=== PATIENT | male | born 1955 | race Hispanic/Latino ===

== ENCOUNTER 2022-01-04 10:13 | Observation (INO) | payer OTHER ==
--- OUTSIDE RECORDS SUMMARY | 2022-01-04 10:16 | XMS REPORT | Continuity of Care Document ---
:1955 Author Organization [facility] t Address [address] [place] [address] Care Team Providers Name Role Phone Emigdio Kam MD Primary Care Physician Emigdio Kam MD Attending Clinician Tato Sabillon MD Attending Clinician TATO SABILLON Attending Clinician Unavailable TATO SABILLON Attending Clinician Unavailable Payers Payer Name Policy Type Policy Number Effective Date Expiration Date S ource Problems Condition Condition Condition Status Onset Resolution Last Treating Co mments Source Name Details Category Date Date Treatment Clinician Date No known No known Disease Unive rs active active ity of problems problems [facility] Allergies, Adverse Reactions, Alerts Allergy Allergy Status Severity Reaction(s) Onset Inactive Treating Comm ents Source Name Type Date Date Clinician NO KNOWN Drug Active Univers ALLERGIE Class ity of S [facility] Social History Social Habit Start Date Stop Date Quantity Comments Source History SDMA University o f Alcohol Frequency [facility] edical Branch History SDMA University o f Alcohol Std Drinks [facility] History SDMA University o f Alcohol Binge [facility] [place] Exposure to 2021-09-29 2021-10-09 Not sure University SARS-CoV-2 (event) 00:00:00 10:16:00 [facility] Alcohol intake 2021-10-09 2021-10-09 .57 /d University of 00:00:00 00:00:00 [facility] Tobacco use and 2020-07-23 2020-07-23 Never used Universit y of exposure 00:00:00 00:00:00 [facility] Alcohol Comment 2020-07-23 2020-07-23 social drinker Unive rsity of 00:00:00 00:00:00 [facility] Sex [birth year] Universit y of 00:00:00 00:00:00 [facility] Smoking Status Start Date Stop Date Source Never smoker [facility] Medications Ordered Filled Start Stop Current Ordering Indication Dosage Frequency Signature Comments Components Source Medication Medication Date Date Medication? Clinician (SIG) Name Name lisinopriL Yes 40mg Take 40 mg U nivers 40 mg 5-27 by mouth ity of tablet 10:31: daily. [address] lisinopriL Yes 40mg Take 40 mg U nivers 40 mg 5-27 by mouth ity of tablet 10:31: daily. [address] lisinopriL Yes 40mg Take 40 mg U nivers 40 mg 5-27 by mouth ity of tablet 10:31: daily. [address] tadalafiL Yes [id number] 20mg Take 1 U nivers 20 mg 5-27 tablet by ity of tablet 00:00: mouth as [place] 00 needed for Medical Erectile Branch dysfunctio n. amLODIPine Yes [id number] 5mg Take 1 U nivers 5 mg tablet 5-27 tablet by ity of 00:00: mouth [place] 00 daily. Medical Branch tadalafiL 2021-0 Yes [id number] 20mg Take 1 U nivers 20 mg 5-27 tablet by ity of tablet 00:00: mouth as [place] 00 needed for Medical Erectile Branch dysfunctio n. amLODIPine 2021-0 Yes [id number] 5mg Take 1 U nivers 5 mg tablet 5-27 tablet by ity of 00:00: mouth [place] 00 daily. Medical Branch tadalafiL 0 Yes [id number] 20mg Take 1 U nivers 20 mg 5-27 tablet by ity of tablet 00:00: mouth as 00 needed for Medical Erectile Branch dysfunctio n. amLODIPine 2021-0 Yes [id number] 5mg Take 1 U nivers 5 mg tablet 5-27 tablet by ity of 00:00: mouth [place] 00 daily. Medical Branch atorvastati 2020-05 Yes 40mg 40 mg. Univ ers n 80 mg 2-27 ity of tablet 00:00: [place] 00 Medical Branch atorvastati 2020-05 Yes 40mg 40 mg. Univ ers n 80 mg 2-27 ity of tablet 00:00: [place] 00 Medical Branch atorvastati 2020-05 Yes 40mg 40 mg. Univ ers n 80 mg 2-27 ity of tablet 00:00: [place] 00 Medical Branch meclizine 2020-05- No TAKE TWO Uni vers 12.5 mg 1-12 10-20 TABLETS BY ity o f tablet 00:00: 04:59 MOUTH [place] 00 :00 THREE Medical TIMES A Branch DAY NEEDED FOR DIZZINESS meclizine 2020-05- No TAKE TWO Uni vers 12.5 mg 1-12 10-20 TABLETS BY ity o f tablet 00:00: 04:59 MOUTH [place] 00 :00 THREE Medical TIMES A Branch DAY NEEDED FOR DIZZINESS meclizine 2020-05- No TAKE TWO Uni vers 12.5 mg 1-12 10-20 TABLETS BY ity o f tablet 00:00: 04:59 MOUTH [place] 00 :00 THREE Medical TIMES A Branch DAY NEEDED FOR DIZZINESS Melatonin 5 2020-0 Yes TAKE TWO Un cammy mg Cap 9-10 BY MOUTH ity of 00:00: AT BEDTIME [place] 00 FOR Medical INSOMNIA Branch Melatonin 5 2020-0 Yes TAKE TWO Un cammy mg Cap 9-10 BY MOUTH ity of 00:00: AT BEDTIME [place] 00 FOR Medical INSOMNIA Branch Melatonin 5 2020-0 Yes TAKE TWO Un cammy mg Cap 9-10 BY MOUTH ity of 00:00: AT BEDTIME [place] 00 FOR Medical INSOMNIA Branch cyclobenzap 2021- No TAKE ONE U nivers rine 10 mg 7-15 07-17 TABLET BY ity of tablet 00:00: 04:59 MOUTH [place] 00 :00 DAILY Medical NEEDED Branch A MUSCLE RELAXANT - DO NOT DRIVE AFTER TAKING THIS MEDICATION cyclobenzap 2021- No TAKE ONE U nivers rine 10 mg 7-15 07-17 TABLET BY ity of tablet 00:00: 04:59 MOUTH [place] 00 :00 DAILY Medical NEEDED Branch A MUSCLE RELAXANT - DO NOT DRIVE AFTER TAKING THIS MEDICATION cyclobenzap 2021- No TAKE ONE U devan rine 10 mg 7-15 17 TABLET BY ity of tablet 00:00: 04:59 MOUTH [place] 00 :00 DAILY Medical NEEDED Branch A MUSCLE RELAXANT - DO NOT DRIVE AFTER TAKING THIS MEDICATION Immunizations Ordered Filled Immunization Date Status Comments Sour e Immunization Name Name SARS-COV-2 COVID-19 2020-08-20 Completed Unive rsity of MODERNA VACCINE 00:00:00 [facility] SARS-COV-2 COVID-19 2020-08-20 Completed Unive rsity of MODERNA VACCINE 00:00:00 [facility] SARS-COV-2 COVID-19 2020-08-20 Completed Unive rsity of MODERNA VACCINE 00:00:00 [facility] SARS-COV-2 COVID-19 2020-07-23 Completed Unive rsity of MODERNA VACCINE 00:00:00 [facility] SARS-COV-2 COVID-19 2020-07-23 Completed Unive rsity of MODERNA VACCINE 00:00:00 [facility] SARS-COV-2 COVID-19 2020-07-23 Completed Unive rsity of MODERNA VACCINE 00:00:00 [facility] Vital Signs Vital Name Observation Time Observation Value Comments Source Systolic blood 2021-10-09 16:10:00 154 mm[Hg] Univer sity of [facility] Diastolic blood 2021-10-09 16:10:00 75 mm[Hg] Unive rsity of [facility] Body height 2021-10-09 16:04:[address] [facility] Body weight 2021-10-09 16:04:[address] [facility] BMI 2021-10-09 16:04:00 38.81 kg/m2 [facility] Procedures This patient has no known procedures. Encounters Start End Encounter Admission Attending Care Care Encounter Source Date/Time Date/Time Type Type Clinicians Facility Department ID 2021-10-23 2021-10-23 Telephone Negin [id number] [facility] 00:00:00 00:00:[address] [facility] [id number] it y of Eddarron HARTMANN [id number] Ramez as LUIS?BLEA [id number] [facility] [address] [place] MEDICAL OFFICE BUILDING 2021-10-09 2021-10-09 Office Raamndeep [facility] [id number] [facility] 11:20:00 12:44:59 Visit Tato [facility] [id number] [facility] [id number] Ramez as LUIS?BLEA [id number] [facility] [place] [id number] [place] MEDICAL OFFICE BUILDING 2021-10-09 2021-10-09 Outpatient R TATO SABILLON [facility] [id number] [facility] 11:20:00 12:44:59 TATO SABILLON of [facility] Results This patient has no known results.
[2022-01-04 10:40] LABS: Absolute Lymphocytes (CBC) 2.2 K/uL (0.7-4.9); Hematocrit 48.2 % (39.6-49.0); Lymphocytes % 27.3 % (15.3-44.8); MCV 89.9 fL (80-100); MPV 8.7 fL (7.6-11.3); RBC Red Blood Cell Count 5.36 M/uL (4.33-5.43)
--- NOTE | 2022-01-04 10:47 | RAD REPORT ---
EXAM DESCRIPTION: RAD - Chest Single View - 01/04/2022 10:41 am CLINICAL HISTORY: CHEST PAIN COMPARISON: No comparisons FINDINGS: Lines: None. Lungs: No evidence of edema or pneumonia. Pleural: No significant pleural effusions or pneumothorax. Cardiac: The heart size is within normal limits. Bones: No acute fractures. Other: IMPRESSION: No acute cardiopulmonary disease.
[2022-01-04 10:58] LABS: Albumin 3.8 g/dL (3.4-5.0); Bilirubin Direct 0.2 mg/dL (0-0.2); Bilirubin Total 0.7 mg/dL (0.2-1.0); Potassium 3.9 mmol/L (3.5-5.1); Protein, Total 7.6 g/dL (6.4-8.2); Troponin High Sensitivity 12.9 pg/mL (<58.9)
--- NOTE | 2022-01-04 11:41 | EDPHYS ---
Physician Documentation [facility] Name: Maurilio Campa Age: 66 yrs Sex: Male : 1955 Arrival Date: 01/04/2022 Time: 10:17 Bed 18 Private MD: ED Physician Duglas Kaminski HPI: 01/04 10:40 This 66 yrs old Male presents to ER via EMS with complaints of chest pain. rn 10:40 The patient or guardian reports chest pain that is located primarily in the substernal rn area. 10:42 Onset: last night. The pain does not radiate. Associated signs and symptoms: Pertinent rn positives: nausea, Pertinent negatives: abdominal pain, cough, diaphoresis, palpitations, shortness of breath, syncope, vomiting. The chest pain is described as a heaviness. Duration: The patient or guardian reports a single episode, that is now resolved. Modifying factors: The symptoms are alleviated by the symptoms are aggravated by nothing. Severity of pain: At its worst the pain was moderate in the emergency department the pain has resolved. The patient has not experienced similar symptoms in the past. The patient has been recently seen by a physician:. Sent [place] for [place], began last night, no radiation, not worse with anything, got better after taking tylenol/motrin. No current chest pain. No hx of [place]. No trauma or injury.. Historical: - Allergies: 10:39 No Known Allergies; mb8 - PMHx: 10:39 Hypertensive disorder; mb8 - Social history:: Smoking status: Patient denies any tobacco usage or history of. - Family history:: not pertinent. - Hospitalizations: : No recent hospitalization is reported. ROS: 10:42 Constitutional: Negative for fever, chills, and weight loss, Eyes: Negative for injury, rn pain, redness, and discharge, Neck: Negative for injury, pain, and swelling, Cardiovascular: Negative for palpitations, and edema, Respiratory: Negative for shortness of breath, cough, wheezing, and pleuritic chest pain, Abdomen/GI: Negative for abdominal pain, vomiting, diarrhea, and constipation, Back: Negative for injury and pain, MS/Extremity: Negative for injury and deformity, Skin: Negative for injury, rash, and discoloration, Neuro: Negative for headache, weakness, numbness, tingling, and seizure. Exam: 10:36 ECG was reviewed by the Attending Physician. rn 10:42 Constitutional: This is a well developed, well nourished patient who is awake, alert, rn and in no acute distress. Head/Face: Normocephalic, atraumatic. Cardiovascular: Bradycardic, regular Respiratory: No increased work of breathing, no retractions or nasal flaring. Abdomen/GI: Soft, non-tender, with normal bowel sounds. No distension or tympany. No guarding or rebound. No evidence of tenderness throughout. Skin: Warm, dry MS/ Extremity: Pulses equal, no cyanosis. Neuro: Awake and alert, GCS 15 Vital Signs: 10:33 BP 154 / 72; Pulse 52; Resp 16 S; Temp 97.9(O); Pulse Ox 94% on R/A; Pain 0/10; mb8 10:36 BP 154 / 72 Supine; Pulse 52; mb8 10:37 BP 133 / 100 Sitting; Pulse 67; mb8 10:37 BP 169 / 74 Standing; Pulse 67; mb8 11:02 BP 125 / 61 RA (auto/lg); Pulse 50; Resp 20; Pulse Ox 93% ; Pain 0/10; mb8 12:44 BP 131 / 67; Pulse 50; Resp 18; Temp 98.2; Pulse Ox 93% on R/A; Pain 0/10; mb8 13:38 BP 133 / 59; Pulse 57; Resp 18; Pulse Ox 95% ; Pain 0/10; mb8 14:35 BP 158 / 75; Pulse 49; Resp 18; Pulse Ox 94% ; Pain 0/10; mb8 MDM: 10:18 Patient medically screened. rn 11:40 Differential diagnosis: acute myocardial infarction, acute pericarditis, coronary rn artery disease congestive heart failure costochondritis, esophagitis, gastritis, gastroesophageal reflux disease (GERD), pericarditis, pleurisy, pneumonia, pneumothorax, pulmonary embolus, stable angina. Data reviewed: vital signs, nurses notes, lab test result(s), EKG, radiologic studies, plain films, and as a result, I will admit patient. Counseling: I had a detailed discussion with the patient and/or guardian regarding: the historical points, exam findings, and any diagnostic results supporting the discharge/admit diagnosis, lab results, radiology results, the need for further work-up and treatment in the hospital. Response to treatment: the patient's symptoms have resolved after treatment, and as a result, I will admit patient. Admission orders: after a detailed discussion of the patient's condition and case, the admit orders are written by me. 01/04 10:18 Order name: Basic Metabolic Panel; Complete Time: 11: rn 01/04 10:18 Order name: CBC with Diff; Complete Time: 10:01/04 10:18 Order name: D-Dimer; Complete Time: 10: rn 01/04 10:18 Order name: LFT's; Complete Time: 11: rn 01/04 10:18 Order name: NT PRO-BNP; Complete Time: 11:01/04 10:18 Order name: Troponin HS; Complete Time: 11:01/04 14:54 Order name: Basic Metabolic Panel [facility] 01/04 14:54 Order name: Basic Metabolic Panel [facility] 01/04 14:54 Order name: CBC with Automated Diff [facility] 01/04 14:54 Order name: CBC with Automated Diff [facility] 01/04 14:54 Order name: Lipid Profile [facility] 01/04 14:54 Order name: Lipid Profile [facility] 01/04 14:54 Order name: Troponin High Sensitivity [facility] 01/04 14:54 Order name: Troponin High Sensitivity [facility] 01/04 10:18 Order name: XRAY Chest (1 view); Complete Time: 10:52 01/04 10:18 Order name: EKG; Complete Time: 10:01/04 10:18 Order name: Cardiac monitoring; Complete Time: 10:01/04 10:18 Order name: EKG - Nurse/Tech; Complete Time: 10:01/04 10:18 Order name: IV Saline Lock; Complete Time: :01/04 10:18 Order name: Labs collected and sent; Complete Time: :01/04 10:18 Order name: O2 Per Protocol; Complete Time: :01/04 10:18 Order name: O2 Sat Monitoring; Complete Time: :01/04 14:52 Order name: CONS Physician Consult [facility] 01/04 14:54 Order name: Heart Healthy [facility] 01/04 14:54 Order name: Troponin High Sensitivity [facility] 01/04 14:54 Order name: Troponin High Sensitivity [facility] 01/04 14:55 Order name: Echo with Doppler [facility] 01/04 20:01 Order name: SARS RAPID ll3 01/04 20:54 Order name: SARS-COV-2 Antigen Rapid [facility] EC:36 Rate is 48 beats/min. Rhythm is regular. QRS [place] is Normal. NC interval is normal. QRS rn interval is normal. QT interval is normal. No Q waves. T waves are Normal. No ST changes noted. Clinical impression: Sinus bradycardia. Interpreted by me. Reviewed by me. Administered Medications: No medications were administered Disposition Summary: 01/04/22 11:41 Hospitalization Ordered Hospitalization Status: Observation rn Provider: Maurilio Kaminski rn Condition: Stable rn Problem: new rn Symptoms: have improved rn Bed/Room Type: Standard rn Location: Telemetry/MedSurg (observation)(01/04/22 20:17) cg Room Assignment: [facility](01/04/22 20:56) Diagnosis - Chest pain, unspecified rn Forms: - Medication Reconciliation Form rn - SBAR form rn Signatures: Dispatcher [employer] EDRI Duglas Kaminski MD MD rn Smirch, Shelby RN RN ss Sylvia Cruz RN RN cg Samir Feng RN RN mb8 Corrections: (The following items were deleted from the chart) 18:42 11:41 Telemetry/MedSurg (observation) rn 18:42 11:41 rn ss 20:17 18:42 [facility] ER HOLD ss cg 20:17 18:42 ERHOLD- ss cg 20:20 20:17 428 cg 20:55 20:20 cg cg 20:56 20:55 228 [facility]
--- NOTE | 2022-01-04 11:41 | ER ---
Nurse's Notes [facility] Name: Maurilio Campa Age: 66 yrs Sex: Male : 1955 Arrival Date: 01/04/2022 Time: 10:17 Bed 18 Private MD: Diagnosis: Chest pain, unspecified Presentation: 01/04 10:33 Chief complaint: Patient states: dizziness when changing positions. HR was in the 40s mb8 at the MO today. Denies any pain. Coronavirus screen: Vaccine status: Patient reports receiving the 2nd dose of the covid vaccine. Ebola Screen: Patient negative for fever greater than or equal to 101.5 degrees Fahrenheit, and additional compatible Ebola Virus Disease symptoms Patient denies exposure to infectious person. Patient denies travel to an Ebola-affected area in the 21 days before illness onset. No symptoms or risks identified at this time. Initial Sepsis Screen: Does the patient meet any 2 criteria? No. Patient's initial sepsis screen is negative. Does the patient have a suspected source of infection? No. Patient's initial sepsis screen is negative. Risk Assessment: Do you want to hurt yourself or someone else? Patient reports no desire to harm self or others. Onset of symptoms is unknown. 10:33 Method Of Arrival: EMS mb8 10:33 Acuity: STACY 3 mb8 Triage Assessment: 10:35 General: Appears in no apparent distress. comfortable, Behavior is calm, cooperative, mb8 appropriate for age. Pain: Denies pain. Cardiovascular: Reports lightheadedness, Denies chest pain, Capillary refill Patient's skin is warm and dry. Pulses are all present. Rhythm is sinus bradycardia. Respiratory: No deficits noted. Breath sounds are clear bilaterally. Denies shortness of breath. Historical: - Allergies: 10:39 No Known Allergies; mb8 - PMHx: 10:39 Hypertensive disorder; mb8 - Social history:: Smoking status: Patient denies any tobacco usage or history of. - Family history:: not pertinent. - Hospitalizations: : No recent hospitalization is reported. Screenin:38 Abuse screen: Denies threats or abuse. Denies injuries from another. Nutritional mb8 screening: No deficits noted. Tuberculosis screening: No symptoms or risk factors identified. Fall Risk None identified. Assessment: 10:38 Cardiovascular: Reports lightheadedness, Denies chest pain, Pulses are all present. mb8 Rhythm is sinus bradycardia Chest pain is denied. Respiratory: No deficits noted. 11:02 Reassessment: No changes from previously documented assessment. Patient and/or family mb8 updated on plan of care and expected duration. Pain level reassessed. Patient is alert, oriented x 3, equal unlabored respirations, skin warm/dry/pink. Patient denies pain at this time. Pain: Denies pain. 12:43 Reassessment: No changes from previously documented assessment. Patient and/or family mb8 updated on plan of care and expected duration. Pain level reassessed. Patient is alert, oriented x 3, equal unlabored respirations, skin warm/dry/pink. Patient denies pain at this time. 14:35 Reassessment: No changes from previously documented assessment. Patient and/or family mb8 updated on plan of care and expected duration. Pain level reassessed. Patient is alert, oriented x 3, equal unlabored respirations, skin warm/dry/pink. Patient denies pain at this time. Vital Signs: 10:33 BP 154 / 72; Pulse 52; Resp 16 S; Temp 97.9(O); Pulse Ox 94% on R/A; Pain 0/10; mb8 10:36 BP 154 / 72 Supine; Pulse 52; mb8 10:37 BP 133 / 100 Sitting; Pulse 67; mb8 10:37 BP 169 / 74 Standing; Pulse 67; mb8 11:02 BP 125 / 61 RA (auto/lg); Pulse 50; Resp 20; Pulse Ox 93% ; Pain 0/10; mb8 12:44 BP 131 / 67; Pulse 50; Resp 18; Temp 98.2; Pulse Ox 93% on R/A; Pain 0/10; mb8 13:38 BP 133 / 59; Pulse 57; Resp 18; Pulse Ox 95% ; Pain 0/10; mb8 14:35 BP 158 / 75; Pulse 49; Resp 18; Pulse Ox 94% ; Pain 0/10; mb8 Vitals: 11:02 Cardiac Rhythm Assessment Regular Sinus jasvir. mb8 ED Course: 10:17 Patient arrived in ED. rn 10:17 Duglas Kaminski MD is Attending Physician. rn 10:33 Samir Feng RN is Primary Nurse. mb8 10:35 Triage completed. mb8 10:38 Arm band placed on right wrist. EKG completed in triage. Results shown to MD. mb8 10:38 No provider procedures requiring assistance completed. Inserted saline lock: 18 gauge mb8 in left antecubital area, using aseptic technique. Blood collected. 10:39 Patient has correct armband on for positive identification. mb8 10:43 XRAY Chest (1 view) In Process Unspecified. EDMS 11:40 Maurilio Kaminski MD is Hospitalizing Provider. rn 12:44 Awaiting: Waiting for admitting MD to see. mb8 20:10 COVID swab sent to lab. mw2 21:09 Patient admitted, IV remains in place. ll3 Administered Medications: No medications were administered Medication: 10:39 VIS not applicable for this client. mb8 Outcome: 11:41 Decision to Hospitalize by Provider. rn 21:28 Admitted to Tele accompanied by tech, via wheelchair, room 428, with chart, Report ll3 called to JHONY Mcgarry 21:28 Condition: stable 21:28 Instructed on the need for admit, Demonstrated understanding of instructions. 21:29 Patient left the ED. ll3 Signatures: Dispatcher [employer] EDMS Duglas Kaminski MD MD rn [place], MyKena mw2 Shirley Fernandez RN RN ll3 Samir Feng, RN RN mb8
[2022-01-04 15:58] VITALS: BMI 36.8
[2022-01-04] MEDS: ENOXAPARIN 40 MG/0.4 ML SQ SCH (16:00)
[2022-01-04] MEDS ORDERED: lisinopriL 20 MG TAB PO SCH (18:00)
--- NOTE | 2022-01-04 18:00 | P.HP ---
Certification for Inpatient Patient admitted to: Observation With expected LOS: <2 Midnights Practitioner: I am a practitioner with admitting privileges, knowledge of patient current condition, hospital course, and medical plan of care. Services: Services provided to patient in accordance with Admission requirements found in Title 42 Section 412.3 of the Code of Federal Regulations Patient History Date of Service: 01/04/22 Reason for admission: Chest pain History of Present Illness: 66yo M, PMH: HTN, IDDM2, EVAN on cpap Presents to ER after having a ~2-3 hour episode of chest pain. He woke up around 3-330am with left sided pressure-like sensation. This continued until after he took some acetaminophen. He was supposedly told he had an irregular heart rhythm and it was in the 40s. He denies any prior episodes, no recent illness, no sick contacts, no prior similar sensations. In the ER currently, he denies having any chest pain, no shortness of breaths. Vitals ok. Initial troponin and EKG negative. ER physician requests obs for ACS rule out Allergies No Known Allergies Allergy (Unverified 01/04/22 15:05) - Past Medical/Surgical History Diabetic: Yes -: HTN -: IDDM2 -: Shoulder - Family History Father -: Heart disease (70s) - Social History Smoking Status: Current every day smoker Place of Residence: Home Review of Systems 10-point ROS is otherwise unremarkable Physical Examination - Vital Signs Blood Pressure: 160/76 Pulse: 59 Respirations: 16 Pulse Ox (%): 94 - Physical Exam General: Alert, In no apparent distress, Oriented x3 HEENT: Mucous membr. moist/pink, EOMI, Sclerae nonicteric Neck: Supple, No LAD Respiratory: Clear to auscultation bilaterally, Normal air movement Cardiovascular: No edema, Regular rate/rhythm Gastrointestinal: Soft and benign, Non-distended, No tenderness Musculoskeletal: No contractures, No tenderness Integumentary: No significant lesion, No tenderness/swelling Neurological: Normal speech, Normal strength at 5/5 x4 extr, Normal affect - Studies Laboratory Data (last 24 hrs) 01/04/22 10:30: WBC 8.00, Hgb 16.3, Hct 48.2, Plt Count 241 01/04/22 10:30: Sodium 138, Potassium 3.9, BUN 11, Creatinine 1.00, Glucose 267 H, Total Bilirubin 0.7, AST 16, ALT 42, Alkaline Phosphatase 65 Assessment and Plan - Advance Directives Does patient have a Living Will: No Does patient have a Durable POA for Healthcare: No Physician Review Additional Text: Problem List Chest Pain HTN IDDM2 EVAN on CPAP pt with risk factors for ACS - HTN, IDDM2, father had GA (in 70s) pain woke patient up sleep, and persisted at rest. concern for unstable angina trend troponin echo ordered cardiology consulted monitor on telemetry confirm home anti-hypertensives and restart insulin sliding scale, accucheks, confirm home insulin dose cpap at night VTE: lovenox Code: full Dispo: home, ~1 day Time Spent Managing Pts Care (In Minutes): 70
[2022-01-04] MEDS ORDERED: ENOXAPARIN 40 MG/0.4 ML SQ ONE (18:03)
[2022-01-04 20:53] LABS: SARS-CoV-2 Antigen Rapid Res Negative (Negative)
[2022-01-04] MEDS ORDERED: MECLIZINE HCL 12.5 MG TAB PO PRN (22:50)
[2022-01-04] MEDS ORDERED: CYCLOBENZAPRINE 10 MG TAB PO PRN (22:50)
[2022-01-04] MEDS ORDERED: GLUCAGON 1 MG/VIAL IM PRN (22:52)
[2022-01-04] MEDS ORDERED: D50W 25 GM/50 ML SYRINGE IV PRN (22:52)
[2022-01-04] MEDS ORDERED: D10W 125 ML IV PRN (22:58)
[2022-01-04] MEDS: INSULIN -REGULAR HUMAN 50 UNIT/0.5 ML ML SQ SCH (23:14)
[2022-01-04] MEDS: AMLODIPINE 10 MG TAB PO SCH (23:14)
[2022-01-05 04:11] LABS: Absolute Lymphocytes (CBC) 2.2 K/uL (0.7-4.9); Hematocrit 45.4 % (39.6-49.0); Lymphocytes % 26.9 % (15.3-44.8); RBC Red Blood Cell Count 4.99 M/uL (4.33-5.43)
[2022-01-05 04:23] LABS: Potassium 3.7 mmol/L (3.5-5.1)
[2022-01-05] MEDS ORDERED: ASPIRIN EC 81 MG TAB PO SCH (09:00)
[2022-01-05] MEDS ORDERED: lisinopriL 20 MG TAB PO SCH (09:00)
[2022-01-05] MEDS ORDERED: INSULIN GLARGINE 100 UNIT/ML SQ SCH (09:00)
[2022-01-05] MEDS ORDERED: HOME MED 1 EA UNK (Insulin Detemir [Levemir] 100 UNIT/1 ML Ml) SQ SCH (09:00)
[2022-01-05] MEDS: AMLODIPINE 10 MG TAB PO SCH (09:12)
[2022-01-05] MEDS: ENOXAPARIN 40 MG/0.4 ML SQ SCH (09:12)
[2022-01-05] MEDS: INSULIN -REGULAR HUMAN 50 UNIT/0.5 ML ML SQ SCH (09:13)
[2022-01-05 09:15] VITALS: BP 130/75
[2022-01-05 09:39] VITALS: TEMP 97.1
[2022-01-05 09:44] VITALS: O2SAT 90
--- NOTE | 2022-01-05 11:03 | P.DS ---
Admission Date: 01/04/22 Discharge Date: 01/05/22 Disposition: ROUTINE DISCHARGE Discharge Condition: FAIR Reason for Admission: Chest pain Brief History of Present Illness: 66yo M, PMH: HTN, IDDM2, EVAN on cpap Presents to ER after having a ~2-3 hour episode of chest pain. He woke up with left sided pressure-like sensation. He was supposedly told he had an irregular heart rhythm and it was in the 40s. His chest pain resolved while in the ED, no shortness of breaths. Vitals stable. Initial troponin and EKG negative. Patient placed under observation for ACS rule out. Hospital Course: Diagnosis Chest Pain HTN IDDM2 EVAN on CPAP Patient placed on observation on the medical floor. Troponin trended negative. LDL checked was within normal limits. Patient was asymptomatic during the hospital stay. He was evaluated by cardiology-Dr. Pettit who recommend outpatient stress test. ACS is ruled out. Patient is discharged to follow-up with Dr. Pettit for outpatient stress test. Vital Signs/Physical Exam: Temp Pulse Resp BP Pulse Ox 97.1 F 59 16 130/75 91 01/05/22 08:00 01/05/22 09:12 01/05/22 08:00 01/05/22 09:12 01/05/22 08:00 General: Alert, In no apparent distress, Oriented x3 HEENT: Mucous membr. moist/pink Neck: JVD not distended Respiratory: Clear to auscultation bilaterally, Normal air movement Cardiovascular: No edema, Regular rate/rhythm, Normal S1 S2 Gastrointestinal: Normal bowel sounds, Soft and benign, Non-distended, No tenderness Musculoskeletal: No swelling Integumentary: No rashes Neurological: Normal strength at 5/5 x4 extr Laboratory Data at Discharge: WBC 8.20 K/uL (4.3-10.9) 01/05/22 03:34 Hgb 15.2 g/dL (13.6-17.9) 01/05/22 03:34 Hct 45.4 % (39.6-49.0) 01/05/22 03:34 Plt Count 224 K/uL (152-406) 01/05/22 03:34 Sodium 138 mmol/L (136-145) 01/05/22 03:34 Potassium 3.7 mmol/L (3.5-5.1) 01/05/22 03:34 BUN 14 mg/dL (7-18) 01/05/22 03:34 Creatinine 0.88 mg/dL (0.55-1.3) 01/05/22 03:34 Glucose 251 mg/dL (74-106) H 01/05/22 03:34 Total Bilirubin 0.7 mg/dL (0.2-1.0) 01/04/22 10:30 AST 16 U/L (15-37) 01/04/22 10:30 ALT 42 U/L (12-78) 01/04/22 10:30 Alkaline Phosphatase 65 U/L (45-117) 01/04/22 10:30 Triglycerides 202 mg/dL (<150) H 01/04/22 15:30 Cholesterol 146 mg/dL (<200) 01/04/22 15:30 HDL Cholesterol 44 mg/dL (40-60) 01/04/22 15:30 Cholesterol/HDL Ratio 3.32 01/04/22 15:30 Home Medications: Acetaminophen [Tylenol Extra Strength] 500 mg PO Q6HP PRN 01/04/22 Amlodipine [Norvasc*] 10 mg PO DAILY 01/04/22 Atorvastatin Calcium [Lipitor] 0.5 tab PO BEDTIME 01/04/22 Cyclobenzaprine HCl 10 mg PO DAILYPRN PRN 01/04/22 Insulin Detemir [Levemir] 33 units SQ BID 01/04/22 Meclizine HCl [Antivert*] 25 mg PO TID PRN 01/04/22 Melatonin 10 mg PO BEDTIME 01/04/22 Quetiapine Fumarate [Seroquel] 0.5 tab PO BEDTIME 01/04/22 lisinopriL [Lisinopril] 40 mg PO DAILY 01/04/22 Aspirin [Aspirin EC 81 MG] 81 mg PO DAILY #30 01/05/22 New Medications: Aspirin [Aspirin EC 81 MG] 81 mg PO DAILY #30 Diet: ADA Activity: Ad alayna Followup: Willy Pettit MD [ACTIVE - CAN ADMIT] - (WITHIN 1 WEEK FOR ARRANGEMENT FOR STRESS TEST.)
--- NOTE | 2022-01-05 11:33 | CON ---
Date of Consultation: 01/05/2022 Reason For Consultation: Chest pain. History Of Present Illness: Mr. Campa has hypertension. He is 66. Has diabetes, dyslipidemia, fami ly history of heart disease. He sees Dr. Kam. Has an episode of chest pain with nausea that las rachel for about 10 minutes while he was asleep. It was not exertional, but does not radiate. He denie d vomiting, diaphoresis, PND, orthopnea, pedal edema, palpitation, syncope, fever, or chills. He has ruled out for an MD so far. Allergies: NONE. Review of Systems: Negative. Social History: Negative. Family History: Positive for heart disease. Medications: At home include Norvasc, insulin, Lipitor, metoprolol, and lisinopril. Physical Examination: Vital Signs: Stable, afebrile. HEENT: Negative. Neck: Supple with no bruit. Chest: Clear. Cardiac: Revealed a regular rhythm and rate. No murmurs, gallops, or rubs. Abdomen: Obese, but benign. Extremities: Revealed no clubbing, cyanosis, or edema. Diagnostic Data: All within normal limit except for the glucose of 251. Impression And Plan: Atypical chest pain, most likely gastric in origin. It happened while he was s leeping. It only lasted 10 minutes. It gave him nausea. No other symptoms, but he does have multip le cardiac risk factors including hypertension, diabetes, dyslipidemia, obesity, his age and gender, his family history. I think he needs to have an echocardiogram and MPI. He will have the echocardio gram today. We will discuss and send him home after that and do the stress test as an outpatient. I will discuss the case further with Dr. Kaminski. RADAMES/LIZA Voice ID: [id number] Report ID: [id number]
--- NOTE | 2022-01-05 13:52 | EKG ---
Test Date: 2022-01-04 Test Time: 10:29:20 Practicing Dermatologist: VALE MEASUREMENT RESULTS: Intervals: Rate: 48 IL: 182 QRSD: 92 QT: 452 QTc: 403 Garita: P: 56 IL: 182 QRS: 60 T: 7 INTERPRETIVE STATEMENTS: Sinus bradycardia Otherwise normal ECG No previous ECG available for comparison Electronically Signed On 01-05-22 13:49:53 CDT by Jose Garcia
--- NOTE | 2022-01-05 14:41 | ECHO ---
HEIGHT: 5 ft 7 in WEIGHT: 235 lb 0 oz DATE OF STUDY: 01/05/[address]: Maurilio Kaminski MD 2-DIMENSIONAL: YES M.MODE: YES DOPPLER: YES COLOR FLOW: YES TDS: PORTABLE: YES DEFINITY: BUBBLE STUDY: DIAGNOSIS: BRADYCARDIA, DIZZINESS CARDIAC HISTORY: CATHERIZATION: NO SURGERY: NO PROSTHETIC VALVE: NO PACEMAKER: NO MEASUREMENTS (cm) DIASTOLIC (NORMALS) SYSTOLIC (NORMALS) IVSd 1.1 (0.6-1.2) LA Diam 4.1 (1.9-4.0) LVEF 60% LVIDd 4.2 (3.5-5.7) LVIDs 2.8 (2.0-3.5) %FS 32% LVPWd 1.2 (0.6-1.2) Ao Diam 2.8 (2.0-3.7) 2 DIMENSIONAL ASSESSMENT: RIGHT ATRIUM: NORMAL LEFT ATRIUM: NORMAL RIGHT VENTRICLE: NORMAL LEFT VENTRICLE: NORMAL TRICUSPID VALVE: NORMAL MITRAL VALVE: MILD MITRAL REGURGITATION PULMONIC VALVE: NORMAL AORTIC VALVE: NORMAL PERICARDIAL EFFUSION: NONE AORTIC ROOT: NORMAL LEFT VENTRICULAR WALL MOTION: NORMAL DOPPLER/COLOR FLOW: MILD MITRAL REGURGITATION COMMENTS: NORMAL LEFT VENTRICULAR EJECTION FRACTION 55-60%. NORMAL WALL MOTION. MILD MITRAL REGURGITATION. TECHNOLOGIST: MELISSA CHACKO
[2022-01-05] MEDS ORDERED: MELATONIN 5 MG TABLET PO SCH (21:00)
[2022-01-05] MEDS ORDERED: QUETIAPINE 100MG TAB PO SCH (21:00)
[2022-01-05] MEDS ORDERED: ATORVASTATIN 40 MG TAB PO SCH (21:00)
== END 2022-01-05 12:08 | disposition home or self-care (01) ==
LOC: ER 10:13 → ERHOLD 14:50 → 4TH 21:00
PROVIDERS: ADMIT Hospitalist; ATTEND Internal Medicine
DX: R07.89 Other chest pain (principal); I10 Essential (primary) hypertension; R00.1 Bradycardia, unspecified; E11.9 Type 2 diabetes mellitus without complications; E78.5 Hyperlipidemia, unspecified; G47.33 Obstructive sleep apnea (adult) (pediatric); Z99.81 Dependence on supplemental oxygen; E66.9 Obesity, unspecified; Z68.36 Body mass index [BMI] 36.0-36.9, adult; F17.210 Nicotine dependence, cigarettes, uncomplicated; Z79.84 Long term (current) use of oral hypoglycemic drugs; Z79.4 Long term (current) use of insulin; Z79.899 Other long term (current) drug therapy; Z20.822 Contact with and (suspected) exposure to COVID-19; Z82.49 Family history of ischemic heart disease and other diseases of the circulatory system
CPT/HCPCS: 36415; 71045; 80048; 80061; 80076; 82947; 83036; 83880; 84484; 85025; 85379; 87811; 93005; 93306; 94660; 94760; 99285; G0378; J1650; J1815